=== PATIENT | male | born 1985 | race Caucasian/White ===

== ENCOUNTER 2016-03-28 13:02 | Inpatient (IN) | payer OTHER ==
[~2016-03-28] VITALS: Ht 180.3 cm; Wt 66.4 kg
[~2016-03-28 13:02] MED LIST: RISP1 PO; SERO150T PO; SERT-132 PO
[2016-03-28 13:05] VITALS: BP 122/84; PULSE 112; RESP 15; TEMP 98.2; O2SAT 98
[2016-03-28] MEDS ORDERED: ACETAMINOPHEN/HYDROcodone 325 MG/5 MG TAB PO ONE (13:45)
--- NOTE | 2016-03-28 14:01 | RADRPT ---
EXAM DATE/TIME: 03/28/2016 13:59 [place] COMPARISON: No previous studies available for comparison. INDICATIONS : Left knee pain post fall today MEDICAL HISTORY : None. SURGICAL HISTORY : None. ENCOUNTER: Initial ACUITY: 1 day PAIN SCORE: 8/10 LOCATION: Left lateral knee FINDINGS: Four view examination of the left knee demonstrates no evidence of fracture or dislocation. Bony min eralization is normal. The articular surfaces are intact. The suprapatellar soft tissues have a nor mal configuration. A metallic density pellet is present in the posterior calf soft tissues of the pro ximal leg CONCLUSION: No acute bony injury Bc Red MD on March 28, 2016 at 13:59 Board Certified Radiologist. This report was verified electronically.
[2016-03-28 14:05] LABS: AUTOMATED NEUTROPHIL # 6.5 TH/MM3 (1.8-7.7); BASOPHIL % 0.3 % (0.0-2.0); EOSINOPHIL % 0.2 % (0.0-4.0); HEMATOCRIT 42.2 % (39.0-51.0); HEMO FLAGS DIFF FINAL; LYMPH % 15.2 % (9.0-44.0); LYMPHOCYTE # 1.3 TH/MM3 (1.0-4.8); MEAN CELL VOLUME 85.7 FL (80.0-100.0); MEAN CORPUSCULAR HEMOGLOBIN 29.2 PG (27.0-34.0); MEAN CORPUSCULAR HGB CONC 34.1 % (32.0-36.0); MONO % 9.5 % (0.0-8.0); NEUT % 74.8 % (16.0-70.0); PLATELET COUNT 238 TH/MM3 (150-450); RED BLOOD COUNT 4.93 MIL/MM3 (4.50-5.90); RED CELL DISTRIBUTION WIDTH 13.8 % (11.6-17.2); WHITE BLOOD COUNT 8.7 TH/MM3 (4.0-11.0)
[2016-03-28 14:16] LABS: ANION GAP 7 MEQ/L (5-15)
[2016-03-28 14:19] LABS: ALKALINE PHOSPHATASE 62 U/L (45-117); ALT (GPT) 23 U/L (12-78); AST (GOT) 13 U/L (15-37); BICARBONATE 31.1 MEQ/L (21.0-32.0); BLOOD UREA NITROGEN 9 MG/DL (7-18); CHLORIDE 103 MEQ/L (98-107); GLOMERULAR FILTRATION RATE 79 ML/MIN (>89); POTASSIUM 3.5 MEQ/L (3.5-5.1); SODIUM (NA) 141 MEQ/L (136-145); TOTAL BILIRUBIN ADULT 0.8 MG/DL (0.2-1.0)
[2016-03-28 14:20] VITALS: BP 135/79; PULSE 99; RESP 20; O2SAT 99
[2016-03-28 14:36] LABS: AMPHETAMINE, URINE NEG (NEG); BARBITURATES, URINE NEG (NEG); COCAINE, URINE NEG (NEG)
--- NOTE | 2016-03-28 14:55 | PD ---
HPI Chief Complaint: Psychiatric Symptoms Time Seen by Provider: 14:50 Travel History International Travel<30 days: No Contact w/Intl Traveler<30days: No Traveled to known affect area: No History of Present Illness HPI 30-year-old male that presents to the ED for eval edition a psychiatric illness as well as left knee pain. Per patient yesterday while drinking with friends he apparently had a fall from stairs and injured his knee. Per patient he anything much of that he was able to ambulate fine but this morning he woke up with a lot of pain on the lateral aspect of the left knee. Per patient he can barely ambulate because of discomfort. Hurts to flex it. Denies any prior injuries. No head injury or loss of consciousness. States that the pain is 7 out of 10. No prior surgeries to this area. No numbness, tingling, weakness. In addition patient reports that he will like to have psychiatry evaluation as she isn't having episodes as insomnia as well as schizo affective disorder. Patient states that he has not taken any medications for over a year because he does not believe that they worked for him. He states that his been hearing voices. He denies any suicidal or homicidal ideation to me. Allergy to tramadol. PFSH Past Medical History Anxiety: Yes Depression: Yes Diabetes: No Diminished Hearing: No Hiatal Hernia: Yes (HX OF SURGERY FOR LIH) Insomnia: Yes Schizophrenia: Yes Tetanus Vaccination: Unknown Influenza Vaccination: No Past Surgical History Abdominal Surgery: Yes (HERNIA REPAIR) Social History Alcohol Use: Yes (DRINKS ON OCCASION) Tobacco Use: No Substance Use: Yes (ALCOHOL) Allergies-Medications (Allergen,Severity, Reaction): Coded Allergies: Tramadol (Unverified Allergy, Unknown, 03/28/16) Per [facility]. Reported Meds & Prescriptions Reported Meds & Active Scripts Active No Active Prescriptions or Reported Medications Review of Systems Except as stated in HPI: all other systems reviewed are Neg Physical Exam Narrative GENERAL: SKIN: Warm and dry. HEAD: Atraumatic. Normocephalic. EYES: Pupils equal and round 4 mm reactive to light and accommodation. No scleral icterus. No injection or drainage. ENT: No nasal bleeding or discharge. Mucous membranes pink and moist. Tongue midline. No uvula deviation. NECK: Trachea midline. No JVD. CARDIOVASCULAR: Regular rate and rhythm. No murmurs, S3, S4. RESPIRATORY: No accessory muscle use. Clear to auscultation. Breath sounds equal bilaterally. GASTROINTESTINAL: Abdomen soft, non-tender, nondistended. Hepatic and splenic margins not palpable. MUSCULOSKELETAL: Extremities without clubbing, cyanosis, or edema. No obvious deformities. Full range of motion of the upper and lower extremities bilaterally with exception of the left knee where he has pain with weightbearing as well as full flexion. Patient has been on the lateral aspect. Patient does have bruising and swelling noted in the area. 2+ pulses bilaterally. NEUROLOGICAL: Awake and alert. No obvious cranial nerve deficits. Motor grossly within normal limits. Five out of 5 muscle strength in the arms and legs. Normal speech. PSYCHIATRIC: Appropriate mood and affect; insight and judgment normal. Data Data Last Documented VS Vital Signs Date Time Temp Pulse Resp B/P Pulse Ox O2 Delivery O2 Flow Rate FiO2 03/28/16 14:20 99 20 135/79 99 Room Air 03/28/16 13:05 98.2 Orders Complete Blood Count With Diff (03/28/16 13:24) Comprehensive Metabolic Panel (03/28/16 13:24) Drug Screen, Random Urine (03/28/16 13:24) Alcohol (Ethanol) (03/28/16 13:24) Psych Screen (03/28/16 13:24) Electrocardiogram (03/28/16 13:34) Knee, Complete (4vws) (03/28/16 ) Acetamin-Hydrocod 325-5 Mg ([place] 5-325 (03/28/16 13:45) Labs Laboratory Tests Test 03/28/16 03/28/16 13:10 13:55 White Blood Count 8.7 TH/MM3 Red Blood Count 4.93 MIL/MM3 Hemoglobin 14.4 GM/DL Hematocrit 42.2 % Mean Corpuscular Volume 85.7 FL Mean Corpuscular Hemoglobin 29.2 PG Mean Corpuscular Hemoglobin 34.1 % Concent Red Cell Distribution Width 13.8 % Platelet Count 238 TH/MM3 Mean Platelet Volume 8.2 FL Neutrophils (%) (Auto) 74.8 % Lymphocytes (%) (Auto) 15.2 % Monocytes (%) (Auto) 9.5 % Eosinophils (%) (Auto) 0.2 % Basophils (%) (Auto) 0.3 % Neutrophils # (Auto) 6.5 TH/MM3 Lymphocytes # (Auto) 1.3 TH/MM3 Monocytes # (Auto) 0.8 TH/MM3 Eosinophils # (Auto) 0.0 TH/MM3 Basophils # (Auto) 0.0 TH/MM3 CBC Comment DIFF FINAL Differential Comment Sodium Level 141 MEQ/L Potassium Level 3.5 MEQ/L Chloride Level 103 MEQ/L Carbon Dioxide Level 31.1 MEQ/L Anion Gap 7 MEQ/L Blood Urea Nitrogen 9 MG/DL Creatinine 1.11 MG/DL Estimat Glomerular Filtration 79 ML/MIN Rate Random Glucose 105 MG/DL Calcium Level 8.8 MG/DL Total Bilirubin 0.8 MG/DL Aspartate Amino Transf 13 U/L (AST/SGOT) Alanine Aminotransferase 23 U/L (ALT/SGPT) Alkaline Phosphatase 62 U/L Total Protein 7.2 GM/DL Albumin 4.3 GM/DL Ethyl Alcohol Level LESS THAN 3 MG/DL Urine Opiates Screen NEG Urine Barbiturates Screen NEG Urine Amphetamines Screen NEG Urine Benzodiazepines Screen NEG Urine Cocaine Screen NEG Urine Cannabinoids Screen POS MDM Medical Decision Making Medical Screen Exam Complete: Yes Emergency Medical Condition: Yes Medical Record Reviewed: Yes Interpretation(s) CBC & BMP Diagram 03/28/16 13:10 EKG shows sinus rhythm with no sign of acute ischemia or arrhythmia. Read by me and attending. X-ray of the left knee show no sign of bony injury. Drug screen positive for marijuana Differential Diagnosis Fracture versus sprain versus strain versus bruise versus contusion versus Depression versus suicidal ideation versus anxiety versus adjustment disorder versus mood disorder versus bipolar disorder versus schizophrenia versus paranoid disorder versus psychosis versus substance abuse versus alcohol abuse versus alcohol induced psychosis versus homicidality addition versus cutting versus personality disorder Narrative Course 30-year-old male that presents to the ED for evaluation of left knee pain as well as psych. Patient was properly examined and was found to have signs and symptoms consistent appears to be contusion to the knee. X-ray was done and was negative. Patient was given crutches and a brace. Patient was given Lortab for pain. Patient he also for psych screening. Labs were drawn. Labs were essentially unremarkable. Patient was medically cleared. Okay to be seen by psych. Mental health screening was discussed with the patient. Diagnosis Primary Impression: Psychosis Qualified Code: F29 - Psychosis, unspecified psychosis type Additional Impression: Contusion of knee, left Scripts No Active Prescriptions or Reported Meds Arias Urena Mar 28, 2016 14:55
[2016-03-28] MEDS ORDERED: hydrOXYzine HCL 50 MG TAB PO PRN (17:00)
[2016-03-28] MEDS ORDERED: diphenhydrAMINE HCL 50 MG CAP PO PRN (17:00)
[2016-03-28] MEDS ORDERED: ALUMINUM/MAGNESIUM/SIMETH 30 ML CUP PO PRN (17:00)
[2016-03-28] MEDS ORDERED: LORazepam 2 MG/ML VIAL IM PRN ×4 (17:00)
[2016-03-28] MEDS ORDERED: BENZTROPINE MESYLATE 2 MG/2 ML VIAL IM PRN (17:00)
[2016-03-28] MEDS ORDERED: MAGNESIUM HYDROXIDE SUSP 30 ML CUP PO PRN (17:00)
[2016-03-28] MEDS ORDERED: BENZTROPINE MESYLATE 1 MG TAB PO PRN (17:00)
[2016-03-28] MEDS ORDERED: LORazepam 2 MG TAB PO PRN (17:00)
[2016-03-28] MEDS ORDERED: LORazepam 1 MG TAB PO PRN (17:00)
[2016-03-28] MEDS ORDERED: FLUMAZENIL 0.5 MG/5 ML VIAL IV PUSH PRN (17:00)
--- NOTE | 2016-03-28 18:04 | MH ---
cc: NANDO RODAS DATE OF ADMISSION 03/28/2016 ADMISSION DIAGNOSES 1. Other psychotic disorder, F28. 2. Cannabis abuse, F12.10 3. Alcohol Abuse, F10.10 LEGAL STATUS: The patient is capacitated to sign into the hospital voluntarily and consent for medications. HISTORY OF PRESENT ILLNESS Mr. Shearer is a 30-year-old male with a reported history of schizophrenia who presents on a voluntary basis initially for his somatic complaints. He requested a psychiatric evaluation given a reported history of psychotic disorder while in the ED and a psychiatric screen was requested. Reviewing the electronic medical record, I see that the patient was seen only once before at [facility] in the ED for psychosis NOS about a year and a half ago. He was sent to [facility] for further stabilization. The patient is seen and examined. Case discussed with nurse in the J pod. On my examination today, the patient describes psychotic symptoms lasting several years but in retrospect but more prominent within the last two years or so. He says that he feels paranoid for no reason. He says he initially thought that this was because of the illicit substances that he was abusing at the time, but he stopped doing them and remained quite paranoid. He constantly feels like something is watching over him and criticizing him. He thinks that people are out to get him. He describes auditory phenomena of voices telling him "you cannot trust them". He reports his sleep is poor. His mood is described as somewhat unstable and he feels like "my brain is running circles around me". He denies any suicidal or homicidal ideation. No other evident delusional beliefs. He describes fair amount of social anxiety, although this seems more related to his paranoia than to an underlying anxiety disorder. Besides the mood instability and possibly some racing thoughts and poor sleep, no hypomanic or manic symptoms in evidence. PAST PSYCHIATRIC HISTORY The patient reports prior diagnosis of schizophrenia. He is not currently followed on an outpatient basis by psychiatry. He was admitted to [facility] in the summer of 2014, as I said. He says he tried to hang himself with a belt about a year ago. He denies any other psychiatric admissions or suicide attempts. He says that he had a significant dystonic reaction from Latuda in combination with BuSpar. He says that he has been also on Seroquel and on Zyprexa, the latter of which helped him with his sleep but made him feel weighed down. FAMILY HISTORY The patient believes that there is a family history of psychiatric illness but no one has been diagnosed. He denies a family history of substance use disorder. CHEMICAL DEPENDENCY HISTORY The patient reports that he has been drinking 2-3 16 ounces beers daily as well as some vodka. His last use was yesterday evening. He denies a history of DTs or seizures. He also smokes cannabis and feels like it is his medicine. He has a history of opiate abuse. He also occasionally smokes cigarettes. SOCIAL HISTORY The patient reports that he has a history of battery charges but no active legal issues. He is single. He has a son who lives with his son's mother. He is high school educated and works at [employer]. He presently lives with his parents. He denies any access to guns or firearms. PAST MEDICAL HISTORY The patient reports a history of issues with hypertension, although his blood pressure is presently within normal limits. REVIEW OF SYSTEMS The patient came in with complaints of some knee pain, although the x-ray was negative for fracture. No other somatic complaints. PHYSICAL EXAMINATION Physical examination was completed by the emergency room physician and the patient was medically cleared. On my examination today, the patient appears to be in no acute physical distress. No abnormal motor movements noted. No hand tremor, no dystonia, no dyskinesia noted. Labs and vital signs reviewed. The patient's vital signs are temperature of 98.2 Fahrenheit, pulse of 99, respirations of 20, blood pressure 135/79 and satting 99% on room air. CBC is unremarkable. CMP is remarkable only for a mildly decreased GFR of 79. Toxicology is positive for cannabinoids and alcohol level was undetectable. MENTAL STATUS EXAM The patient is casually dressed. He is well-groomed. He is awake, alert and oriented x3. No abnormal motor movements noted. Speech is within normal limits for rate, tone and volume. Language and fund of knowledge seem average for age. Mood is described as somewhat unstable and affect is blunted. Thought process linear. No loosening of associations. Some paranoia present. No other delusions. He reports auditory hallucinations telling him not to trust others but no other hallucinatory material. Denies any suicidal or homicidal ideation. Insight and judgment are fair. ASSESSMENT/PLAN This is a 30-year-old male with psychiatric history as detailed above who presents to the emergency room voluntarily with somatic complaints and requesting psychiatric evaluation. The patient describes a history of paranoia and associated auditory hallucinations as well as some degree of mood instability and racing thoughts. Although there does seem to be an affective component at play here, the primary symptomatology seems to be psychotic in nature. It is possible that the patient has a primary psychotic disorder like a schizophrenia or schizoaffective disorder or less likely that he has a mood disorder with psychotic features. The patient also has significant substance use issues, alcohol and cannabis, and it is possible that all of his symptomatology is substance-induced, although the patient says that he tried to abstain from substances for a time and had persistent symptoms despite this. The patient has tried several different atypical antipsychotics before either without benefit or with active side effects. He is looking for a medication to help him sleep. We discussed the risks and benefits of several medications. I will trial the patient on Thorazine. The patient would benefit from psychiatric admission at this time for observation and stabilization. Admit inpatient. Voluntary status. Check a hemoglobin A1c and lipid panel in the morning. Initiate Thorazine 25 mg twice daily. Plan to adjust dose to effect. Atarax as needed for anxiety, Cogentin as needed for EPS, Benadryl as needed for sleep. CIWA with Ativan for any withdrawal. Thiamine and folate. Seizure and fall precautions. Vitals every shift. Counselor to see. Disposition planning. Estimated length of stay: 5-7 days. Nando Rodas DC/ /5:08 PM /5:40 PM ENOC
[2016-03-28 19:27] VITALS: BP 121/76; PULSE 86; RESP 19; TEMP 98.8; O2SAT 99
[2016-03-28] MEDS: ACETAMINOPHEN 325 MG TAB PO PRN (19:35)
[2016-03-28 19:50] VITALS: BP 121/76; PULSE 87; RESP 18; TEMP 98.2; O2SAT 99
[2016-03-28] MEDS: chlorproMAZINE HCL 25 MG TAB PO SCH (21:00)
[2016-03-29 06:38] VITALS: BP 109/78; PULSE 79; RESP 16; TEMP 96.6
[2016-03-29] MEDS: chlorproMAZINE HCL 25 MG TAB PO SCH ×2 (08:31→21:38)
[2016-03-29] MEDS: THIAMINE HCL 100 MG TAB PO SCH (08:31)
[2016-03-29] MEDS: FOLIC ACID 1 MG TAB PO SCH (08:31)
[2016-03-29] MEDS: ACETAMINOPHEN 325 MG TAB PO PRN (08:32)
[2016-03-29] MEDS: NICOTINE 21 MG/24 HR PATCH T-DERMAL SCH (08:33)
[2016-03-29] MEDS: REMOVE OLD NICOTINE PATCH T-DERMAL SCH (09:00)
[2016-03-29 09:59] LABS: ANION GAP 7 MEQ/L (5-15); BICARBONATE 32.4 MEQ/L (21.0-32.0); BLOOD UREA NITROGEN 10 MG/DL (7-18); CHLORIDE 101 MEQ/L (98-107); GLOMERULAR FILTRATION RATE 80 ML/MIN (>89); HDL CHOLESTEROL 63.9 MG/DL (40.0-60.0); LDL CHOLESTEROL 38 MG/DL (0-99); POTASSIUM 3.6 MEQ/L (3.5-5.1); SODIUM (NA) 140 MEQ/L (136-145)
[2016-03-29 12:04] LABS: HEMOGLOBIN A1a 1.2 %; HEMOGLOBIN A1b 1.5 %; HEMOGLOBIN Ao 86.2 %; HEMOGLOBIN LA1C 1.9 %; HEMOGLOBIN P3 3.5 %
--- NOTE | 2016-03-29 13:30 | EKG ---
Date Performed: 03/28/2016 Time Performed: 14:07:34 PTAGE: 30 years EKG: Sinus rhythm NORMAL ECG INTERPRETATION BASED ON A DEFAULT AGE OF 42 YEARS NO PREVIOUS TRACING DOCTOR: Glenn Barber Interpretating Date/Time 03/29/2016 13:28:04
--- NOTE | 2016-03-29 16:00 | HHI.PYPN ---
Subjective Remarks Patient was seen and case discussed with nursing. Patient is perseverative and hyperverbal during the interview. Patient describes his hallucinations today is "subsided." Before admission patient admits to hearing other people's thoughts. He reports paranoia feeling that somebody is always watching him. Mood is mildly irritable. Denies suicidal ideations thought or plan. Objective Alert: Yes [place]: Person, Place, Date Mood: Anxious Affect: Blunted Memory Intact: Immediate Hallucinations: Auditory (negative things) Delusions: No Delusion Type: Paranoid Suicidal: Ideation (denies) Homicidal: Ideation (denies) Insight/Judgement Poor Labs Test 03/29/16 09:02 Sodium Level 140 MEQ/L Potassium Level 3.6 MEQ/L Chloride Level 101 MEQ/L Carbon Dioxide Level 32.4 MEQ/L Anion Gap 7 MEQ/L Blood Urea Nitrogen 10 MG/DL Creatinine 1.10 MG/DL Estimat Glomerular Filtration 80 ML/MIN Rate Random Glucose 70 MG/DL Hemoglobin A1c 5.4 % Calcium Level 8.9 MG/DL Triglycerides Level 110 MG/DL Cholesterol Level 124 MG/DL LDL Cholesterol 38 MG/DL HDL Cholesterol 63.9 MG/DL Cholesterol/HDL Ratio 1.94 RATIO Vitals/IOs Vital Signs Date Time Temp Pulse Resp B/P Pulse Ox O2 Delivery O2 Flow Rate FiO2 03/29/16 06:38 96.6 79 16 109/78 03/28/16 19:50 99 03/28/16 19:27 Room Air Assessment & Plan Problem List: (1) Psychosis ICD Code: F29 Assessment & Plan Patient says he is seeing a benefit from his medication regimen. Asking about pain medication for his knee. Justification for Cont. Inpt. Patient will decompensate in a less restrictive setting Problem Qualifiers (1) Psychosis: Qualified Code: F29 - Psychosis, unspecified psychosis type Nils Phillips DO Mar 29, 2016 16:00
[2016-03-29 20:29] VITALS: BP 130/77; PULSE 103; RESP 18; TEMP 99.4; O2SAT 99
[2016-03-30 06:16] VITALS: BP 118/62; PULSE 70; RESP 16; TEMP 98.2; O2SAT 96
[2016-03-30] MEDS: chlorproMAZINE HCL 25 MG TAB PO SCH (08:46)
[2016-03-30] MEDS: THIAMINE HCL 100 MG TAB PO SCH (08:46)
[2016-03-30] MEDS: FOLIC ACID 1 MG TAB PO SCH (08:46)
[2016-03-30] MEDS: NICOTINE 21 MG/24 HR PATCH T-DERMAL SCH (08:46)
[2016-03-30] MEDS: REMOVE OLD NICOTINE PATCH T-DERMAL SCH (08:46)
[2016-03-30] MEDS ORDERED: CHLO25TA38 PO (10:52)
[2016-03-30] MEDS ORDERED: FOLI1TAB4 PO (10:53)
[2016-03-30] MEDS ORDERED: VITA100T2 PO (10:53)
--- NOTE | 2016-03-30 10:53 | HHI.DS ---
Psychiatry Discharge Summary Inpatient Psychiatric care?: Yes Advance Directive: No Reason Not Provided: Refused Mental Health AdvanceDirective: No (Refused) Health Care Proxy: Yes Admission Admission Date Mar 28, 2016 at 17:00 Admission Diagnosis: (1) Other psychotic disorder not due to a substance or known physiological condition ICD Code: F28 (2) Cannabis abuse ICD Code: F12.10 (3) Alcohol abuse ICD Code: F10.10 Brief History Mr. Shearer is a 30-year-old male with a reported history of schizophrenia who presents on a voluntary basis initially for his somatic complaints. He requested a psychiatric evaluation given a reported history of psychotic disorder while in the ED and a psychiatric screen was requested. Reviewing the electronic medical record, I see that the patient was seen only once before at [facility] in the ED for psychosis NOS about a year and a half ago. He was sent to [facility] for further [facility]. The patient is seen and examined. Case discussed with nurse in the J pod. On my examination today, the patient describes psychotic symptoms lasting several years but in retrospect but more prominent within the last two years or so. He says that he feels paranoid for no reason. He says he initially thought that this was because of the illicit substances that he was abusing at the time, but he stopped doing them and remained quite paranoid. He constantly feels like something is watching over him and criticizing him. He thinks that people are out to get him. He describes auditory phenomena of voices telling him "you cannot trust them". He reports his sleep is poor. His mood is described as somewhat unstable and he feels like "my brain is running circles around me". He denies any suicidal or homicidal ideation. No other evident delusional beliefs. He describes fair amount of social anxiety, although this seems more related to his paranoia than to an underlying anxiety disorder. Besides the mood instability and possibly some racing thoughts and poor sleep, no hypomanic or manic symptoms in evidence. Tobacco Use In Past 30 Days: 5 or More Cigarettes/Day Alcohol Use: 4 or More Times Per Week Hospital Course Patient was admitted to a locked, inpatient psychiatric unit. Appropriate precautions were in place throughout patient's hospital stay. Patient was seen and examined daily on the unit by psychiatry and also visited by counselor. Medications were adjusted. Patient tolerated medication changes well without side effects. Patient had significant improvement in his presenting psychiatric symptomatology during the course of his hospital stay. There was no evidence of any suicidal or homicidal behavior on the inpatient psychiatric unit. Patient remained in good behavioral control and was medication compliant. On the day of discharge: Case discussed with nursing staff. No behavioral issues to note. On my examination today, the patient reports that he is feeling much improved and is ready for discharge from the inpatient psychiatric unit. He feels like the Thorazine is helping him quite a bit and denies side effects from this medication. He denies any suicidal or homicidal ideation. No audiovisual hallucinations. No ongoing delusions. No withdrawal symptoms. No physical complaints. 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 Patient has maximized benefit from this inpatient psychiatric hospital stay. At patient preference we will titrate patient's nighttime dose of Thorazine to 50 mg and he can follow up with his outpatient psychiatric provider as arranged by counselor. I counseled the patient to abstain from substances of abuse. I have also counseled the patient to return to the psychiatric emergency room for any concerning psychiatric symptoms as part of the general safety plan. Results Blood Pressure 118 / 62 Vital Signs Date Time Temp Pulse Resp B/P Pulse Ox O2 Delivery O2 Flow Rate FiO2 03/30/16 06:16 98.2 70 16 118/62 96 03/28/16 19:27 Room Air Laboratory Tests Test 03/28/16 03/28/16 03/29/16 13:10 13:55 09:02 Neutrophils (%) (Auto) 74.8 % (16.0-70.0) Monocytes (%) (Auto) 9.5 % (0.0-8.0) Estimat Glomerular Filtration 79 ML/MIN (>89) 80 ML/MIN (>89) Rate Aspartate Amino Transf 13 U/L (15-37) (AST/SGOT) Urine Cannabinoids Screen POS (NEG) Carbon Dioxide Level 32.4 MEQ/L (21.0-32.0) Random Glucose 70 MG/DL (74-106) HDL Cholesterol 63.9 MG/DL (40.0-60.0) Laboratory Results Test 03/29/16 09:02 Hemoglobin A1c 5.4 % (4.3-6.0) Triglycerides Level 110 MG/DL (42-150) Cholesterol Level 124 MG/DL (120-200) LDL Cholesterol 38 MG/DL (0-99) HDL Cholesterol 63.9 MG/DL (40.0-60.0) Summary of Procedures None done Imaging Last Impressions Knee X-Ray 03/28/16 0000 Signed Impressions: Service Date/Time: Monday, March 28, 2016 13:59 - CONCLUSION: No acute bony injury Bc Red MD Pending results at discharge: No Medications # of Antipsychotic meds at D/C: 1 Approp Antipsych med options 1 - Minimum of three failed multiple trials of monotherapy. 2 - Documented plan to taper to monotherapy due to previous use of multiple meds OR cross-taper in progress at D/C. 3 - Documentation of augmentation of Clozapine. 4 - Justification other than those listed in allowable values 1-3, document here : Discharge Discharge Date: Mar 30, 2016 Discharge Diagnosis: (1) Other psychotic disorder not due to a substance or known physiological condition Diagnosis: Principal (stable) ICD Code: F28 (2) Cannabis abuse Diagnosis: Secondary (counseled to quit) ICD Code: F12.10 (3) Alcohol abuse Diagnosis: Secondary (counseled to quit. No withdrawal.) ICD Code: F10.10 GAF on discharge is 60 Mental Status Exam at Disch Patient is in hospital gown. He is fairly well groomed. He is awake and alert and oriented 3. No abnormal motor movements noted. No signs of withdrawal noted despite minimal Ativan requirement. Speech is within normal limits for rate, tone and volume. Language and fund of knowledge seem adequate for age. Mood is fair and affect is full and reactive. Thought process linear. No loosening of associations. No evident delusions. Denies audiovisual hallucinations. Denies suicidal or homicidal ideation. Insight and judgment are fair. Pt Condition on Discharge: Stable Discharge Disposition: Discharge Home Discharge Instructions Diet Instructions: As Tolerated, No Restrictions Activities you can perform: Weight Bearing as Sun Scheduled Appointment: as per counselor's notes New Medications: Chlorpromazine (Chlorpromazine) 25 Mg Tab 25 MG PO DIRECTED 25mg PO qAM and 50mg PO qHS. Mental Health Days 15 Ref 1 TAB Folic Acid (Folate) 1 Mg Tab 1 MG PO DAILY Nutritional Supplement Days 30 Ref 0 TAB Thiamine (Vitamin B-1) 100 Mg Tab 100 MG PO DAILY Nutritional Supplement Days 30 Ref 0 TAB Discharge Time <= 30 minutes Discharge/Advance Care Plan Health Problems: (1) Psychosis Goals to promote your health * To prevent worsening of your condition and complications * To maintain your health at the optimal level Directions to meet your goals Take your medications as prescribed Follow your dietary instruction Follow activity as directed Keep your appointments as scheduled Take your immunizations and boosters as scheduled If your symptoms worsen call your PCP, if no PCP go to Urgent Care Center or Emergency Room For 05/10 questions related to your inpatient stay or results of tests pending at discharge, please contact Dr. Nando Rodas at Smoking is Dangerous to Your Health. Avoid second hand smoking Nando Rodas MD Mar 30, 2016 10:53
[2016-03-30] MEDS: ACETAMINOPHEN 325 MG TAB PO PRN (13:31)
== END 2016-03-30 14:50 | disposition home or self-care (01) | DRG 885 ==
LOC: NEPC 13:02 → NEDA 17:00 → H270 19:49
PROVIDERS: ADMIT Psychiatry & Neurology Psychiatry; ATTEND Psychiatry & Neurology Psychiatry
DX: F28 Other psychotic disorder not due to a substance or known physiological condition (principal); F10.10 Alcohol abuse, uncomplicated; F12.10 Cannabis abuse, uncomplicated; S80.02XA Contusion of left knee, initial encounter; X58.XXXA Exposure to other specified factors, initial encounter
CPT/HCPCS: 73564; 80048; 80053; 80061; 80307; 80320; 83036; 85025; 93005; E0113; L1830

== ENCOUNTER 2016-04-10 13:36 | Emergency (ER) | payer OTHER ==
[~2016-04-10] VITALS: Ht 180.3 cm; Wt 70.0 kg
[~2016-04-10 13:36] MED LIST changes: +CHLO25TA38 PO; +FOLI1TAB4 PO; -RISP1 PO; -SERO150T PO; -SERT-132 PO; +VITA100T2 PO
[2016-04-10 13:38] VITALS: BP 137/83; PULSE 94; RESP 17; TEMP 97.6; O2SAT 99
[2016-04-10 14:13] LABS: AUTOMATED NEUTROPHIL # 4.9 TH/MM3 (1.8-7.7); BASOPHIL % 0.5 % (0.0-2.0); EOSINOPHIL # 0.2 TH/MM3 (0-0.4); EOSINOPHIL % 3.1 % (0.0-4.0); HEMATOCRIT 43.6 % (39.0-51.0); HEMO FLAGS DIFF FINAL; LYMPH % 22.3 % (9.0-44.0); LYMPHOCYTE # 1.7 TH/MM3 (1.0-4.8); MEAN CELL VOLUME 85.8 FL (80.0-100.0); MEAN CORPUSCULAR HEMOGLOBIN 29.3 PG (27.0-34.0); MEAN CORPUSCULAR HGB CONC 34.1 % (32.0-36.0); MONO % 10.8 % (0.0-8.0); NEUT % 63.3 % (16.0-70.0); PLATELET COUNT 259 TH/MM3 (150-450); RED BLOOD COUNT 5.08 MIL/MM3 (4.50-5.90); RED CELL DISTRIBUTION WIDTH 13.3 % (11.6-17.2); WHITE BLOOD COUNT 7.8 TH/MM3 (4.0-11.0)
[2016-04-10 14:25] LABS: ALT (GPT) 25 U/L (12-78); ANION GAP 5 MEQ/L (5-15); AST (GOT) 14 U/L (15-37); BICARBONATE 31.1 MEQ/L (21.0-32.0); BLOOD UREA NITROGEN 7 MG/DL (7-18); CHLORIDE 106 MEQ/L (98-107); GLOMERULAR FILTRATION RATE 86 ML/MIN (>89); POTASSIUM 3.7 MEQ/L (3.5-5.1); SODIUM (NA) 142 MEQ/L (136-145)
[2016-04-10 14:28] LABS: ALKALINE PHOSPHATASE 75 U/L (45-117); TOTAL BILIRUBIN ADULT 0.6 MG/DL (0.2-1.0)
[2016-04-10 14:29] LABS: AMPHETAMINE, URINE NEG (NEG); BARBITURATES, URINE NEG (NEG); COCAINE, URINE NEG (NEG)
[2016-04-10] MEDS ORDERED: BENA25TA3 PO (14:43)
[2016-04-10] MEDS ORDERED: LORazepam 2 MG/ML VIAL IV PUSH ONE (14:45)
[2016-04-10] MEDS ORDERED: LORazepam 1 MG TAB PO ONE (14:45)
--- NOTE | 2016-04-10 14:59 | PD ---
HPI Chief Complaint: Psychiatric Symptoms Time Seen by Provider: 14:55 Travel History International Travel<30 days: No Contact w/Intl Traveler<30days: No Traveled to known affect area: No History of Present Illness HPI 30-year-old male that presents to the ED for evaluation of psychiatric illness. Patient comes here voluntarily for this. Patient does have a history of schizophrenia and polysubstance abuse. Per patient he has not been drinking or using cocaine anymore and he was seen here just a month ago and evaluated. Per patient he was doing fine with the medications but apparently his been having more hallucinations. Patient states that sometimes the right. Per patient his been seeing things that are not there but he also tells me that he believes that something grab him and put him on help. Per patient he believes that something to cover his body. He seems to be very frustrated because he doesn't know what's going on and she wants some answers and to help him get back to normal so he can work and have a normal life. He does only to he still uses marijuana. She still smokes. Patient apparently stopped taking his medications for 3 days but did start retaking them today. He denies any other medical prongs. He has not seen a psychiatrist since been discharged here. Other than this patient reports being complaint. PFSH Past Medical History Arthritis: No Asthma: No Anxiety: Yes Depression: Yes Heart Rhythm Problems: No Cardiovascular Problems: No High Cholesterol: No Chest Pain: No Congestive Heart Failure: No COPD: No Cerebrovascular Accident: No Diabetes: No Diminished Hearing: No Gastrointestinal Disorders: No GERD: No Genitourinary: No Headaches: No Hiatal Hernia: No Hypertension: No Insomnia: Yes Kidney Stones: No Musculoskeletal: No Neurologic: No Reproductive: No Respiratory: No Migraines: No Renal Failure: No Schizophrenia: Yes Seizures: No Sleep Apnea: No Ulcer: No Past Surgical History Abdominal Surgery: No Cardiac Surgery: No Ear Surgery: No Endocrine Surgery: No Eye Surgery: No Genitourinary Surgery: No Gynecologic Surgery: No Neurologic Surgery: No Oral Surgery: No Thoracic Surgery: No Other Surgery: No Social History Alcohol Use: Yes (DRINKS ON OCCASION) Tobacco Use: No Substance Use: Yes (THC) Allergies-Medications (Allergen,Severity, Reaction): Coded Allergies: No Known Allergies (Unverified , 04/10/16) Reported Meds & Prescriptions Reported Meds & Active Scripts Active Folate (Folic Acid) 1 Mg Tab 1 Mg PO DAILY 30 Days Chlorpromazine (Chlorpromazine HCl) 25 Mg Tab 25 Mg PO DIRECTED 15 Days 25mg PO qAM and 50mg PO qHS. Reported Benadryl Allergy (Diphenhydramine HCl) 25 Mg Tab 25 Mg PO Q6H PRN Review of Systems Except as stated in HPI: all other systems reviewed are Neg Physical Exam Narrative GENERAL: SKIN: Warm and dry. HEAD: Atraumatic. Normocephalic. EYES: Pupils equal and round. No scleral icterus. No injection or drainage. ENT: No nasal bleeding or discharge. Mucous membranes pink and moist. NECK: Trachea midline. No JVD. CARDIOVASCULAR: Regular rate and rhythm. RESPIRATORY: No accessory muscle use. Clear to auscultation. Breath sounds equal bilaterally. GASTROINTESTINAL: Abdomen soft, non-tender, nondistended. Hepatic and splenic margins not palpable. MUSCULOSKELETAL: Extremities without clubbing, cyanosis, or edema. No obvious deformities. Full range of motion of the upper and lower extremities bilaterally. 2+ pulses bilaterally. NEUROLOGICAL: Awake and alert. No obvious cranial nerve deficits. Motor grossly within normal limits. Five out of 5 muscle strength in the arms and legs. Normal speech. PSYCHIATRIC: psychotic mood and affect; insight and judgment questionable Data Data Last Documented VS Vital Signs Date Time Temp Pulse Resp B/P Pulse Ox O2 Delivery O2 Flow Rate FiO2 04/10/16 14:34 86 20 04/10/16 13:38 97.6 137/83 99 Orders Complete Blood Count With Diff (04/10/16 13:51) Comprehensive Metabolic Panel (04/10/16 13:51) Drug Screen, Random Urine (04/10/16 13:51) Alcohol (Ethanol) (04/10/16 13:51) Psych Screen (04/10/16 13:51) Thyroid Stimulating Hormone (04/10/16 14:41) Lorazepam (Ativan) (04/10/16 14:45) Lorazepam Inj (Ativan Inj) (04/10/16 14:45) Labs Laboratory Tests Test 04/10/16 14:00 White Blood Count 7.8 TH/MM3 Red Blood Count 5.08 MIL/MM3 Hemoglobin 14.9 GM/DL Hematocrit 43.6 % Mean Corpuscular Volume 85.8 FL Mean Corpuscular Hemoglobin 29.3 PG Mean Corpuscular Hemoglobin 34.1 % Concent Red Cell Distribution Width 13.3 % Platelet Count 259 TH/MM3 Mean Platelet Volume 8.2 FL Neutrophils (%) (Auto) 63.3 % Lymphocytes (%) (Auto) 22.3 % Monocytes (%) (Auto) 10.8 % Eosinophils (%) (Auto) 3.1 % Basophils (%) (Auto) 0.5 % Neutrophils # (Auto) 4.9 TH/MM3 Lymphocytes # (Auto) 1.7 TH/MM3 Monocytes # (Auto) 0.8 TH/MM3 Eosinophils # (Auto) 0.2 TH/MM3 Basophils # (Auto) 0.0 TH/MM3 CBC Comment DIFF FINAL Differential Comment Sodium Level 142 MEQ/L Potassium Level 3.7 MEQ/L Chloride Level 106 MEQ/L Carbon Dioxide Level 31.1 MEQ/L Anion Gap 5 MEQ/L Blood Urea Nitrogen 7 MG/DL Creatinine 1.03 MG/DL Estimat Glomerular Filtration 86 ML/MIN Rate Random Glucose 107 MG/DL Calcium Level 9.2 MG/DL Total Bilirubin 0.6 MG/DL Aspartate Amino Transf 14 U/L (AST/SGOT) Alanine Aminotransferase 25 U/L (ALT/SGPT) Alkaline Phosphatase 75 U/L Total Protein 7.6 GM/DL Albumin 4.7 GM/DL Urine Opiates Screen NEG Urine Barbiturates Screen NEG Urine Amphetamines Screen NEG Urine Benzodiazepines Screen NEG Urine Cocaine Screen NEG Urine Cannabinoids Screen POS Ethyl Alcohol Level LESS THAN 3 MG/DL MDM Medical Decision Making Medical Screen Exam Complete: Yes Emergency Medical Condition: Yes Medical Record Reviewed: Yes Interpretation(s) CBC & BMP Diagram 04/10/16 14:00 Tox positive for marijuana. LFTs negative. Differential Diagnosis Depression versus suicidal ideation versus anxiety versus adjustment disorder versus mood disorder versus bipolar disorder versus schizophrenia versus paranoid disorder versus psychosis versus substance abuse versus alcohol abuse versus alcohol induced psychosis versus homicidality addition versus cutting versus personality disorder Narrative Course 30-year-old male that presents to the ED for evaluation of psych. Patient was properly examined and was found to have signs and symptoms consistent with appears to be psychiatric illness. He does appear to be psychotic. I suspect the patient probably has some sort of schizophrenia or psychosis. Unclear if this is related to polysubstance abuse versus true schizophrenia. Regardless labs were done. Labs were essentially unremarkable. Patient will be medically clear. Okay to be seen by psych. Mental health screening was discussed with the patient. Diagnosis Primary Impression: Psychosis Qualified Code: F29 - Psychosis, unspecified psychosis type Additional Impression: Cannabis abuse Arias Urena Apr 10, 2016 14:59
[2016-04-10 22:20] VITALS: BP 121/67; PULSE 69; RESP 18; O2SAT 98
[2016-04-11 02:33] VITALS: BP 125/68; PULSE 80; RESP 18; O2SAT 99
[2016-04-11 06:14] VITALS: BP 110/74; PULSE 97; RESP 18; O2SAT 100
--- NOTE | 2016-04-11 10:44 | PD ---
History of Present Illness Chief Complaint: Psychiatric Symptoms Time Seen by Provider: 10:15 Travel History International Travel<30 Days: No Contact w/Intl Traveler<30days: No Known affected area: No Legal Status Legal Status: Voluntary History of Present Illness: History of Present Illness HPI 30-year-old male with hx of psychotic disorder, nos who presents to the ED on a voluntary basis for evaluation of psychiatric illness. as per the patient after his discharge from [facility] he was doing well until yesterday when he felt that he was dragged by something out of his bed. He also reports feeling week. He states that he stopped his Thorazine " because I was taking some Lortabs and Tramadol that I got from the street for pain in my knee and I did not want to mix them". He has also continued to use marijuana. He then reports increase in psychiatric symptoms as previously stated. . Since being in [facility] he reports that he is feeling better and is denying any hallucinations, delusions or berkley paranoia. He is requesting to have " Ativan" as " it helps me with my thinking it gets my brain straight". He also request to have a medication for sleep . " Do you think they will give me something for sleep , not a psychiatric medication but an actual sleep medication? ". As per record review that patient was admitted to [facility] under the care of Dr. Ramires and discharged Mar 30, 2015. Patient failed to follow up with his appointment at [facility] after his hospital discharge. Patient has been monitored in [facility]. He slept well and has presented no behavioral concerns. He does not appear to be responding to internal stimuli at this time. His s speech is clear and logical. He does seem to be medication seeking and more specifically seeking narcotic medication. He does not present any suicidal homicidal ideation, intent or plan. Mild anxiety but no other significant symptom. He does state several times that he feels better in the hospital and that he has difficulty functioning outside. I discuss with him possible negative effects of using other medications including narcotics as well as negative effects of cannabinoids on his mental health functioning. [facility] Past Medical History Arthritis: No Asthma: No Anxiety: Yes Depression: Yes Heart Rhythm Problems: No Cardiovascular Problems: No High Cholesterol: No Chest Pain: No Congestive Heart Failure: No COPD: No Cerebrovascular Accident: No Diabetes: No Diminished Hearing: No Gastrointestinal Disorders: No GERD: No Genitourinary: No Headaches: No Hiatal Hernia: No Hypertension: No Insomnia: Yes Kidney Stones: No Musculoskeletal: No Neurologic: No Reproductive: No Respiratory: No Migraines: No Renal Failure: No Schizophrenia: Yes Seizures: No Sleep Apnea: No Ulcer: No Past Surgical History Abdominal Surgery: No Cardiac Surgery: No Ear Surgery: No Endocrine Surgery: No Eye Surgery: No Genitourinary Surgery: No Gynecologic Surgery: No Neurologic Surgery: No Oral Surgery: No Thoracic Surgery: No Other Surgery: No Psychiatric History Psychiatric History Hx Psychiatric Treatment: Psychosis, nos History of Inpatient Treatment: Yes Guns or firearms in home: No Social History Sing[place] male, lives with his girlfriend. Has one son. Currently unemployed. Hx Alcohol Use: Yes (DRINKS ON OCCASION) Hx Tobacco Use: No Hx Substance Use: Yes (THC) Substance Use Type: Alcohol, Marijuana Hx of Substance Use Treatment: Yes Family Psychiatric History None reported Allergies-Medications (Allergen,Severity, Reaction): Coded Allergies: No Known Allergies (Unverified , 04/10/16) Reported Meds & Prescriptions Reported Meds & Active Scripts Active Folate (Folic Acid) 1 Mg Tab 1 Mg PO DAILY 30 Days Chlorpromazine (Chlorpromazine HCl) 25 Mg Tab 25 Mg PO DIRECTED 15 Days 25mg PO qAM and 50mg PO qHS. Reported Benadryl Allergy (Diphenhydramine HCl) 25 Mg Tab 25 Mg PO Q6H PRN Review of Systems Constitutional: DENIES: Diaphoretic episodes, Fatigue, Fever, Weight gain, Weight loss, Chills, Dizziness, Change in appetite, Night Sweats Endocrine: DENIES: Heat/cold intolerance, Polydipsia, Polyuria, Polyphagia Eyes: DENIES: Blurred vision, Diplopia, Eye inflammation, Eye pain, Vision loss , Photosensitivity, Double Vision Ears, nose, mouth, throat: DENIES: Tinnitus, Hearing loss, Vertigo, Nasal discharge, Oral lesions, Throat pain, Hoarseness, Ear Pain, Running Nose, Epistaxis, Sinus Pain, Toothache, Odynophagia Respiratory: DENIES: Apneas, Cough, Snoring, Wheezing, Hemoptysis, Sputum production, Shortness of breath Gastrointestinal: DENIES: Abdominal pain, Black stools, Bloody stools, Constipation, Diarrhea, Nausea, Vomiting, Difficulty Swallowing, Anorexia Musculoskeletal: COMPLAINS OF: Joint pain (left knee) Integumentary: DENIES: Abnormal pigmentation, Nail changes, Pruritus, Rash Hematologic/lymphatic: DENIES: Bruising, Lymphadenopathy Immunologic/allergic: DENIES: Eczema, Urticaria Neurologic: DENIES: Abnormal gait, Headache, Localized weakness, Paresthesias, Seizures, Speech Problems, Tremor, Poor Balance Psychiatric: COMPLAINS OF: Anxiety Exam Alert: Yes [place]: Person (ox4) Mood: Anxious Affect: Euthymic Speech: Clear, Logical Eye Contact: Normal Memory Intact: Comment (no impairemtn) Hallucinations: Other Delusions: No Suicidal: Ideation (deneis any) Homicidal: Ideation (denies any) Insight/Judgement poor. poor MDM Medical Decision Making Medical Record Reviewed: Yes Assessment/Plan 30 year old who is under a voluntary status. He presents to ED reporting paranoia as well as loss of sleep. He stopped his prescribed medications after his discharge from [facility] in favor of non prescribed narcotics he obtained on the streets. At this time patient does report a complete absence of hallucinations, paranoia or any other symptom as a result of hospital stay as well as after he received Ativan and a dose of Thorazine At this time he does not meet criteria for inpatient treatment. He is provided psychoeducation. Advised to follow up with [facility] on Wednesday as well to abstain from substance use.. Orders Complete Blood Count With Diff (04/10/16 13:51) Comprehensive Metabolic Panel (04/10/16 13:51) Drug Screen, Random Urine (04/10/16 13:51) Alcohol (Ethanol) (04/10/16 13:51) Psych Screen (04/10/16 13:51) Thyroid Stimulating Hormone (04/10/16 14:41) Lorazepam (Ativan) (04/10/16 14:45) Lorazepam Inj (Ativan Inj) (04/10/16 14:45) Diet Regular Basic (04/10/16 Dinner) Chlorpromazine (Thorazine) (04/10/16 19:30) Diet Regular Basic (04/11/16 Breakfast) Diet Regular Basic (04/11/16 Lunch) Thiamine (Vit B1) (Vitamin B1) (04/12/16 09:00) Results Vital Signs Date Time Temp Pulse Resp B/P Pulse Ox O2 Delivery O2 Flow Rate FiO2 04/11/16 06:14 97 18 110/74 100 04/11/16 02:33 80 18 125/68 99 04/10/16 22:20 69 18 121/67 98 04/10/16 14:34 86 20 04/10/16 13:38 97.6 94 17 137/83 99 Laboratory Tests Test 04/10/16 14:00 White Blood Count 7.8 Red Blood Count 5.08 Hemoglobin 14.9 Hematocrit 43.6 Mean Corpuscular Volume 85.8 Mean Corpuscular Hemoglobin 29.3 Mean Corpuscular Hemoglobin 34.1 Concent Red Cell Distribution Width 13.3 Platelet Count 259 Mean Platelet Volume 8.2 Neutrophils (%) (Auto) 63.3 Lymphocytes (%) (Auto) 22.3 Monocytes (%) (Auto) 10.8 Eosinophils (%) (Auto) 3.1 Basophils (%) (Auto) 0.5 Neutrophils # (Auto) 4.9 Lymphocytes # (Auto) 1.7 Monocytes # (Auto) 0.8 Eosinophils # (Auto) 0.2 Basophils # (Auto) 0.0 CBC Comment DIFF FINAL Differential Comment Sodium Level 142 Potassium Level 3.7 Chloride Level 106 Carbon Dioxide Level 31.1 Anion Gap 5 Blood Urea Nitrogen 7 Creatinine 1.03 Estimat Glomerular Filtration 86 Rate Random Glucose 107 Calcium Level 9.2 Total Bilirubin 0.6 Aspartate Amino Transf 14 (AST/SGOT) Alanine Aminotransferase 25 (ALT/SGPT) Alkaline Phosphatase 75 Total Protein 7.6 Albumin 4.7 Thyroid Stimulating Hormone 0.807 3rd Gen Urine Opiates Screen NEG Urine Barbiturates Screen NEG Urine Amphetamines Screen NEG Urine Benzodiazepines Screen NEG Urine Cocaine Screen NEG Urine Cannabinoids Screen POS Ethyl Alcohol Level LESS THAN 3 Diagnosis Primary Impression: Psychosis Additional Impression: Cannabis abuse Psychiatrically Cleared: Yes Med/ Other Pt Specific Info: No Change to Meds Disposition: 01 DISCHARGE HOME Condition: Stable Problem Qualifiers Primary Impression: Psychosis Qualified Code: 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
[2016-04-11] MEDS ORDERED: THIAMINE HCL 100 MG TAB PO SCH (12:00)
[2016-04-12] MEDS ORDERED: THIAMINE HCL 100 MG TAB PO SCH (09:00)
== END 2016-04-11 11:34 | disposition home or self-care (01) ==
LOC: NEPC 13:36 → NEPJ 04-11 11:34
DX: F29 Unspecified psychosis not due to a substance or known physiological condition (principal); F12.10 Cannabis abuse, uncomplicated
CPT/HCPCS: 80053; 80307; 80320; 84443; 85025; 99284

== ENCOUNTER 2017-04-11 12:03 | Emergency (ER) | payer OTHER ==
[~2017-04-11] VITALS: Ht 180.3 cm; Wt 78.0 kg
[~2017-04-11 12:03] MED LIST changes: +BENA25TA3 PO
[2017-04-11 12:04] VITALS: BP 129/71; PULSE 79; RESP 14; TEMP 98.5; O2SAT 100
--- NOTE | 2017-04-11 14:33 | PD ---
HPI Chief Complaint: GI Complaint Time Seen by Provider: 14:16 Travel History International Travel<30 days: No Contact w/Intl Traveler<30days: No Traveled to known affect area: No History of Present Illness HPI 41-year-old male complains of chills, congestion, coughing, nausea vomiting. Patient states the symptoms started 5 days ago. Patient states that his boss has the same symptoms. Patient states that he has mild aching headache. Patient denies any visual change. Patient denies any neck pain. Patient denies any chest pain or short is of breath. Patient states that he has intermittent mild dry cough. Patient denies abdominal pain. Patient states that he has intermittent nausea vomiting and diarrhea. Patient denies any blood or mucus in the stool. Patient states that he does not have any fever. Patient complained of shaking chills. PFSH Past Medical History Arthritis: No Asthma: No Anxiety: Yes Depression: Yes Heart Rhythm Problems: No Cardiovascular Problems: No High Cholesterol: No Chest Pain: No Congestive Heart Failure: No COPD: No Cerebrovascular Accident: No Diabetes: No Diminished Hearing: No Gastrointestinal Disorders: No GERD: No Genitourinary: No Headaches: No Hiatal Hernia: No Hypertension: No Insomnia: Yes Kidney Stones: No Musculoskeletal: No Neurologic: No Reproductive: No Respiratory: No Migraines: No Renal Failure: No Schizophrenia: Yes Seizures: No Sleep Apnea: No Ulcer: No Past Surgical History Abdominal Surgery: No Cardiac Surgery: No Ear Surgery: No Endocrine Surgery: No Eye Surgery: No Genitourinary Surgery: No Gynecologic Surgery: No Neurologic Surgery: No Oral Surgery: No Thoracic Surgery: No Other Surgery: No Social History Alcohol Use: Yes (DRINKS ON OCCASION) Tobacco Use: No Substance Use: Yes (THC) Allergies-Medications (Allergen,Severity, Reaction): Coded Allergies: No Known Allergies (Unverified Adverse Reaction, Unknown, 04/11/17) Reported Meds & Prescriptions Reported Meds & Active Scripts Active Reported Trileptal (Oxcarbazepine) 150 Mg Tab 150 Mg PO HS Doxepin (Doxepin HCl) 25 Mg Cap 25 Mg PO HS Review of Systems General / Constitutional: No: Fever Eyes: No: Visual changes HENT: No: Headaches Cardiovascular: No: Chest Pain or Discomfort Respiratory: Positive: Cough, No: Shortness of Breath Gastrointestinal: Positive: Nausea, Vomiting, Diarrhea, No: Abdominal Pain Genitourinary: No: Dysuria Musculoskeletal: No: Pain Skin: No Rash Neurologic: No: Weakness Psychiatric: No: Depression Endocrine: No: Polydipsia Hematologic/Lymphatic: No: Easy Bruising Physical Exam Narrative GENERAL: Well-nourished, well-developed patient. SKIN: Focused skin assessment warm/dry. HEAD: Normocephalic. EYES: No scleral icterus. No injection or drainage. TM: Clear Throat: Mild erythematous NECK: Supple, trachea midline. No JVD or lymphadenopathy. No meningismus CARDIOVASCULAR: Regular rate and rhythm without murmurs, gallops, or rubs. RESPIRATORY: Breath sounds equal bilaterally. No accessory muscle use. GASTROINTESTINAL: Abdomen soft, non-tender, nondistended. MUSCULOSKELETAL: No cyanosis, or edema. BACK: Nontender without obvious deformity. No CVA tenderness. Neurologic exam normal. Data Data Last Documented VS Vital Signs Date Time Temp Pulse Resp B/P (MAP) Pulse Ox O2 Delivery O2 Flow Rate FiO2 04/11/17 14:36 18 04/11/17 12:04 98.5 79 129/71 (90) 100 MDM Medical Decision Making Medical Screen Exam Complete: Yes Emergency Medical Condition: Yes Differential Diagnosis Differential diagnosis including viral syndrome, otitis media, pharyngitis, bronchitis, pneumonia, gastroenteritis, dehydration. Narrative Course 31-year-old male with chills, nausea vomiting, dry cough, body ache. Diagnosis Primary Impression: Viral syndrome Patient Instructions: General Instructions Additional Instructions: Tylenol or ibuprofen for aching pain. Zofran as needed for nausea vomiting. Z- Carlos if persistent coughing. Follow-up with personal physician. Return if worse. Med/Other Pt SpecificInfo: Prescription(s) given Scripts Azithromycin (Zithromax Z-Carlos) 250 Mg Dspk 250 MG PO DIRECTED for Infection, #1 DSPK 0 Refills 500 MG (2 tabs) day 1, then 1 tab days 2-5. Prov: Alvin Magallanes MD 04/11/17 Ondansetron Odt (Zofran Odt) 4 Mg Tab 4 MG SL Q6HR Y for Nausea/Vomiting, #10 TAB 0 Refills Prov: Alvin Magallanes MD 04/11/17 Disposition: 01 DISCHARGE HOME Condition: Stable Alvin Magallanes MD Apr 11, 2017 14:33
[2017-04-11] MEDS ORDERED: TRIL150T PO (14:40)
[2017-04-11] MEDS ORDERED: DOXE25CA2 PO (14:40)
[2017-04-11] MEDS ORDERED: ZOFR4TAB3 SL (15:04)
[2017-04-11] MEDS ORDERED: ZITHTAB PO (15:04)
== END 2017-04-11 16:15 | disposition home or self-care (01) ==
LOC: NEPD 12:03
DX: B34.9 Viral infection, unspecified (principal)
CPT/HCPCS: 99284